=== PATIENT | female | born 1985 | race Caucasian/White ===

== ENCOUNTER 2018-07-10 19:17 | Emergency (ER) | payer SELFPAY ==
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
[2018-07-10 20:26] LABS: Urine Blood 1+ (NEG); Urine Glucose NEGATIVE (NEG); Urine Protein NEGATIVE (NEG); Urine Specific Gravity >1.030 (1.005-1.030); Urine pH 6.5 (5.0-7.0)
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
== END 2018-07-10 21:26 | disposition home or self-care (01) ==
LOC: ER 19:17
DX: S13.4XXA Sprain of ligaments of cervical spine, initial encounter (principal); S33.5XXA Sprain of ligaments of lumbar spine, initial encounter; S20.229A Contusion of unspecified back wall of thorax, initial encounter; V49.40XA Driver injured in collision with unspecified motor vehicles in traffic accident, initial encounter; F17.210 Nicotine dependence, cigarettes, uncomplicated
CPT/HCPCS: 71046; 72100; 72125; 81003; 81025; 99284

== ENCOUNTER 2018-12-21 16:34 | Emergency (ER) | payer SELFPAY ==
--- NOTE | 2018-12-21 18:36 | ER ---
Nurse's Notes [facility] Name: Argentina Torres Age: 33 yrs Sex: Female : 1985 Arrival Date: 12/21/2018 Time: 16:36 Bed 30 Private MD: Diagnosis: Streptococcal pharyngitis Presentation: 12/21 17:02 Presenting complaint: Patient states: Sore throat, diarrhea, fatigue, body aches, hb headache, chills, and nausea x 3 days. Transition of care: patient was not received from another setting of care. Onset of symptoms was December 18, 2018. Risk Assessment: Do you want to hurt yourself or someone else? Patient reports no desire to harm self or others. Care prior to arrival: None. 17:02 Method Of Arrival: Ambulatory hb 17:02 Acuity: FRANNIE 3 hb 18:44 Initial Sepsis Screen: Does the patient meet any 2 criteria? No. Patient's initial rv sepsis screen is negative. Does the patient have a suspected source of infection? No. Patient's initial sepsis screen is negative. Historical: - Allergies: 17:03 No Known Allergies; hb - Home Meds: 18:45 Tylenol #3 Oral [Active]; rv - PMHx: 18:45 None; rv - PSHx: 17:03 Tubal ligation; hb - Immunization history:: Adult Immunizations up to date. - Social history:: Smoking status: Patient uses tobacco products, smokes one-half pack cigarettes per day. - Ebola Screening: : No symptoms or risks identified at this time. Screenin:43 Abuse screen: Denies threats or abuse. Denies injuries from another. Nutritional rv screening: No deficits noted. Tuberculosis screening: No symptoms or risk factors identified. Fall Risk None identified. Assessment: 17:12 General: Appears in no apparent distress. comfortable, Behavior is calm, cooperative. rv Pain: Complains of pain in GENERALIZED. Neuro: Level of Consciousness is awake, alert, obeys commands, Oriented to person, place, time, situation. Cardiovascular: Capillary refill < 3 seconds. Respiratory: Airway is patent Respiratory effort is even, Breath sounds are clear bilaterally. GI: Reports diarrhea. : No signs and/or symptoms were reported regarding the genitourinary system. EENT: Throat. Derm: Skin is intact. Musculoskeletal: No signs and/or symptoms reported regarding the musculoskeletal system. Vital Signs: 17:03 BP 127 / 71; Pulse 98; Resp 16; Temp 99.1; Pulse Ox 98% on R/A; Pain 8/10; hb ED Course: 16:36 Patient arrived in ED. ds1 17:03 Triage completed. hb 17:03 Arm band placed on. hb 17:06 Smitha Ventura FNP-C is [facility]. kb 17:06 Jin Vinson MD is Attending Physician. kb 17:25 Flu and/or RSV swab sent to lab. Strep swab sent to lab. lt1 17:26 Flu Sent. lt1 17:26 Strep Sent. lt1 18:43 Patient has correct armband on for positive identification. Bed in low position. Call rv light in reach. Side rails up X 1. Pulse ox on. NIBP on. 18:44 No provider procedures requiring assistance completed. Patient did not have IV access rv during this emergency room visit. Administered Medications: 18:42 Drug: Augmentin 875 mg Route: PO; rv 18:42 Follow up: Response: Medication administered at discharge. rv Outcome: 18:35 Discharge ordered by MD. kb 18:45 Discharged to home ambulatory. rv 18:45 Condition: good 18:45 Discharge instructions given to patient, Instructed on discharge instructions, follow up and referral plans. medication usage, Demonstrated understanding of instructions, follow-up care, medications, Prescriptions given X 1. 18:45 Patient left the ED. rv Signatures: Smitha Ventura FNP-C FNP-Ckb Sanford, Demi ds1 Leola Jimenez, RN ANNETTE Camden Bueno RN RN Emily Blas lt1
--- NOTE | 2018-12-21 18:36 | EDPHYS ---
Physician Documentation [facility] Name: Argentina Torres Age: 33 yrs Sex: Female : 1985 Arrival Date: 12/21/2018 Time: 16:36 Bed 30 Private MD: ED Physician Jin Vinson HPI: 12/21 17:16 This 33 yrs old Female presents to ER via Ambulatory with complaints of Sore kb Throat, Diarrhea. 17:16 The patient presents with sore throat. The patient describes throat pain as constant. kb Onset: The symptoms/episode began/occurred 2 day(s) ago. Severity of symptoms: At their worst the symptoms were mild, moderate, in the emergency department the symptoms are unchanged. Modifying factors: The symptoms are alleviated by nothing, the symptoms are aggravated by swallowing, Patient's oral intake status: good. Associated signs and symptoms: Pertinent positives: flu-like symptoms, myalgias, headache, Sore throat. The patient has not experienced similar symptoms in the past. The patient has not recently seen a physician. Pt reports sore throat, headache, chills and body aches for 2 days. . Historical: - Allergies: 17:03 No Known Allergies; hb - Home Meds: 18:45 Tylenol #3 Oral [Active]; rv - PMHx: 18:45 None; rv - PSHx: 17:03 Tubal ligation; hb - Immunization history:: Adult Immunizations up to date. - Social history:: Smoking status: Patient uses tobacco products, smokes one-half pack cigarettes per day. - Ebola Screening: : No symptoms or risks identified at this time. ROS: 17:15 Neck: Negative for injury, pain, and swelling, Cardiovascular: Negative for chest pain, kb palpitations, and edema, Respiratory: Negative for shortness of breath, cough, wheezing, and pleuritic chest pain, Abdomen/GI: Negative for abdominal pain, nausea, vomiting, diarrhea, and constipation, MS/Extremity: Negative for injury and deformity, Skin: Negative for injury, rash, and discoloration, Neuro: Negative for headache, weakness, numbness, tingling, and seizure. 17:15 Constitutional: Positive for body aches, chills, fever, malaise, Negative for fatigue, poor PO intake, weight loss. 17:15 ENT: Positive for sore throat. Exam: 17:14 Constitutional: This is a well developed, well nourished patient who is awake, alert, kb and in no acute distress. Head/Face: Normocephalic, atraumatic. Neck: Trachea midline, no thyromegaly or masses palpated, and no cervical lymphadenopathy. Supple, full range of motion without nuchal rigidity, or vertebral point tenderness. No Meningismus. Chest/axilla: Normal chest wall appearance and motion. Nontender with no deformity. No lesions are appreciated. Cardiovascular: Regular rate and rhythm with a normal S1 and S2. No gallops, murmurs, or rubs. Normal PMI, no JVD. No pulse deficits. Respiratory: Lungs have equal breath sounds bilaterally, clear to auscultation and percussion. No rales, rhonchi or wheezes noted. No increased work of breathing, no retractions or nasal flaring. Abdomen/GI: Soft, non-tender, with normal bowel sounds. No distension or tympany. No guarding or rebound. No evidence of tenderness throughout. Skin: Warm, dry with normal turgor. Normal color with no rashes, no lesions, and no evidence of cellulitis. MS/ Extremity: Pulses equal, no cyanosis. Neurovascular intact. Full, normal range of motion. Neuro: Awake and alert, GCS 15, oriented to person, place, time, and situation. Cranial nerves II-XII grossly intact. Motor strength 5/5 in all extremities. Sensory grossly intact. Cerebellar exam normal. Normal gait. 17:14 ENT: External ear(s): are unremarkable, Ear canal(s): are normal, TM's: are normal, Nose: is normal, Mouth: is normal, Posterior pharynx: Airway: normal, no evidence of obstruction, Tonsils: bilaterally enlarged, with erythema, with exudate, Uvula: normal, midline, swelling, that is moderate, erythema, that is moderate, exudate, that is moderate. Vital Signs: 17:03 BP 127 / 71; Pulse 98; Resp 16; Temp 99.1; Pulse Ox 98% on R/A; Pain 8/10; hb MDM: 17:06 Patient medically screened. kb 17:14 Data reviewed: vital signs, nurses notes. Data interpreted: Pulse oximetry: on room air kb is 98 %. Interpretation: normal. 18:33 Counseling: I had a detailed discussion with the patient and/or guardian regarding: the kb historical points, exam findings, and any diagnostic results supporting the discharge/admit diagnosis, lab results, the need for outpatient follow up, a family practitioner, to return to the emergency department if symptoms worsen or persist or if there are any questions or concerns that arise at home. 12/21 17:14 Order name: Strep kb 12/21 17:14 Order name: Flu kb 12/21 17:15 Order name: Group A Streptococcus Rapid Sc; Complete Time: 18:34 EDMS 12/21 17:15 Order name: Influenza Screen (A ; Complete Time: 18:34 EDMS Administered Medications: 18:42 Drug: Augmentin 875 mg Route: PO; rv 18:42 Follow up: Response: Medication administered at discharge. rv Disposition: 12/22 07:18 Co-signature as Attending Physician, Jin Vinson MD I agree with the assessment and kdr plan of care. Chart complete. Disposition: 12/21/18 18:35 Discharged to Home. Impression: Streptococcal pharyngitis. - Condition is Stable. - Discharge Instructions: Strep Throat, Scac-[id number]. - Prescriptions for Augmentin 875- 125 mg Oral Tablet - take 1 tablet by ORAL route every 12 hours for 10 days; 20 tablet. - Medication Reconciliation Form, Thank You Letter, Antibiotic Education, Prescription Opioid Use, Work release form form. - Follow up: Emergency Department; When: As needed; Reason: Worsening of condition. Follow up: Private Physician; When: 2 - 3 days; Reason: Recheck today's complaints, Continuance of care, Re-evaluation by your physician. Signatures: Dispatcher [employer] EDSmitha Ely, MANAGER OF REVENUE-C MANAGER OF REVENUE-Jin Erickson MD MD [facility] Leola Jimenez RN RN hb Vicente, Ronaldo, RN RN rv Corrections: (The following items were deleted from the chart) 12/21 18:45 18:35 12/21/2018 18:35 Discharged to Home. Impression: Streptococcal pharyngitis. rv Condition is Stable. Forms are Medication Reconciliation Form, Thank You Letter, Antibiotic Education, Prescription Opioid Use. Follow up: Emergency Department; When: As needed; Reason: Worsening of condition. Follow up: Private Physician; When: 2 - 3 days; Reason: Recheck today's complaints, Continuance of care, Re-evaluation by your physician. kb
[2018-12-21] MEDS ORDERED: AMOX/K CLAV 875 MG TAB ONE (18:50)
== END 2018-12-21 18:45 | disposition home or self-care (01) ==
LOC: ER 16:34
DX: J02.0 Streptococcal pharyngitis (principal); F17.210 Nicotine dependence, cigarettes, uncomplicated
CPT/HCPCS: 87081; 87804; 99284

== ENCOUNTER 2019-07-10 08:20 | Emergency (ER) | payer SELFPAY ==
[2019-07-10] MEDS ORDERED: IBUPROFEN 400 MG TAB ONE (09:28)
--- NOTE | 2019-07-10 10:13 | EDPHYS ---
Physician Documentation [facility] Name: Argentina Torres Age: 34 yrs Sex: Female : 1985 Arrival Date: 07/10/2019 Time: 08:21 Bed 14 Private MD: ED Physician Kris Preston HPI: 07/10 08:47 This 34 yrs old Female presents to ER via Ambulatory with complaints of jmm Headache, Pain All Over, Sore Throat. 08:47 The patient presents with sore throat. Onset: The symptoms/episode began/occurred jmm gradually, 2 day(s) ago. Modifying factors: The symptoms are alleviated by nothing, the symptoms are aggravated by nothing. Associated signs and symptoms: Pertinent positives: fever, headache, Sore throat. The patient has experienced a previous episode. This is a 34 year old female with no chronic medical conditions that presents to the ED with complaints of sore throat, headache, body aches that began this past Tuesday. Patient has had similar symptoms before with strep infections. . 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 - Social history:: Smoking status: Patient uses tobacco products, smokes one-half pack cigarettes per day. - Ebola Screening: : No symptoms or risks identified at this time. ROS: 08:47 Respiratory: Negative for shortness of breath, cough, wheezing, and pleuritic chest jmm pain, Abdomen/GI: Negative for abdominal pain, nausea, vomiting, diarrhea, and constipation, Back: Negative for injury and pain. 08:47 Constitutional: Positive for body aches, fever. 08:47 Cardiovascular: Positive for chest pain, with cough. 08:47 Neuro: Positive for headache. 08:47 All other systems are negative. Exam: 08:47 Constitutional: This is a well developed, well nourished patient who is awake, alert, jmm and in no acute distress. Head/Face: atraumatic. Eyes: EOMI, no conjunctival erythema appreciated 08:47 ENT: Posterior pharynx: erythema, that is moderate. 08:47 Neck: ROM/movement: is normal. 08:47 Cardiovascular: Rate: tachycardic, Rhythm: regular. 08:47 Respiratory: the patient does not display signs of respiratory distress, Respirations: normal, Breath sounds: are clear throughout. 08:47 Abdomen/GI: Inspection: abdomen appears normal, Bowel sounds: normal, Palpation: abdomen is soft and non-tender. 08:47 Skin: Appearance: Color: normal in color. 08:47 Neuro: Orientation: is normal, Mentation: is normal, Memory: is normal. 08:47 Psych: Behavior/mood is pleasant, cooperative. Vital Signs: 08:37 BP 127 / 79; Pulse 104; Resp 19 S; Temp 100.2(O); Pulse Ox 99% on R/A; Pain 10/10; jl7 10:31 BP 112 / 78; Pulse 94; Resp 16 S; Temp 99.2(O); Pulse Ox 100% on R/A; jl7 MDM: 09:02 Patient medically screened. [facility] 10:12 Data reviewed: vital signs, nurses notes. Counseling: I had a detailed discussion with kobi the patient and/or guardian regarding: the historical points, exam findings, and any diagnostic results supporting the discharge/admit diagnosis, lab results, the need for outpatient follow up, to return to the emergency department if symptoms worsen or persist or if there are any questions or concerns that arise at home. ED course: Patient is alert and non toxic in appearance in the ED. PE findings consistent with Strep Pharyngitis. Patient advised to follow up with pcp and otherwise given strict return precautions. Patient understood and agrees with the plan of care. . 07/10 08:46 Order name: Strep; Complete Time: 09:12 [facility] 07/10 08:46 Order name: Flu; Complete Time: 09:16 [facility] 07/10 10:31 Order name: EKG Electrocardiogram EDMS Administered Medications: 09:30 Drug: Ibuprofen 800 mg Route: PO; 7 10:30 Follow up: Response: No adverse reaction jl7 Disposition: 13:29 Co-signature as Attending Physician, Kris Preston MD I agree with the assessment and [facility] plan of care. Disposition: 07/10/19 10:12 Discharged to Home. Impression: Streptococcal pharyngitis. - Condition is Stable. - Discharge Instructions: Strep Throat. - Prescriptions for Amoxicillin 875 mg Oral Tablet - take 1 tablet by ORAL route every 12 hours for 10 days; 20 tablet. - Medication Reconciliation Form, Thank You Letter, Antibiotic Education, Prescription Opioid Use, Work release form form. - Follow up: Private Physician; When: 2 - 3 days; Reason: Recheck today's complaints, Continuance of care, Re-evaluation by your physician. Signatures: Dispatcher [employer] EDKris Bean MD MD cha Mickail, Joel, PA PA jmm Leal, Jahala, RN RN jl7 Corrections: (The following items were deleted from the chart) 10:32 10:12 07/10/2019 10:12 Discharged to Home. Impression: Streptococcal pharyngitis. jl7 Condition is Stable. Forms are Medication Reconciliation Form, Thank You Letter, Antibiotic Education, Prescription Opioid Use. Follow up: Private Physician; When: 2 - 3 days; Reason: Recheck today's complaints, Continuance of care, Re-evaluation by your physician. kobi
--- NOTE | 2019-07-10 10:13 | ER ---
Nurse's Notes [facility] Name: Argentina Torres Age: 34 yrs Sex: Female : 1985 Arrival Date: 07/10/2019 Time: 08:21 Bed 14 Private MD: Diagnosis: Streptococcal pharyngitis Presentation: 07/10 08:33 Presenting complaint: Patient states: SEPULVEDA, fatigue and sore throat x 2 days. Substernal jl7 chest soreness and left rib soreness with palpation and movement. Transition of care: patient was not received from another setting of care. Onset of symptoms was July 08, 2019. Risk Assessment: Do you want to hurt yourself or someone else? Patient reports no desire to harm self or others. Initial Sepsis Screen: Does the patient meet any 2 criteria? HR > 90 bpm. No. Patient's initial sepsis screen is negative. Does the patient have a suspected source of infection? No. Patient's initial sepsis screen is negative. Care prior to arrival: None. 08:33 Method Of Arrival: Ambulatory [facility] 08:33 Acuity: FRANNIE 4 jl7 Triage Assessment: 08:37 Headache History: The patient has had previous headaches and this one is similar to jl7 previous episodes. General: Appears in no apparent distress. uncomfortable, ill, Behavior is calm, cooperative, appropriate for age. Pain: Complains of pain in sore throat Pain. Pain: Complains of pain in SEPULVEDA Pain does not radiate. Pain currently is 10 out of 10 on a pain scale. Quality of pain is described as Pain began 2-3 days ago. Is continuous, Also complains of no other associated symptoms. EENT: Throat is reddened has patchy exudate has enlarged tonsils bilaterally. Neuro: Level of Consciousness is awake, alert, obeys commands, Oriented to person, place, time, situation. Cardiovascular: Heart tones S1 S2 present Patient's skin is warm and dry. Respiratory: Airway is patent Respiratory effort is even, unlabored, Respiratory pattern is regular, symmetrical, Breath sounds are clear bilaterally. GI: Patient currently denies diarrhea, nausea, vomiting. : Denies burning with urination. Derm: Skin is pink, warm \T\ dry. Musculoskeletal: No signs and/or symptoms reported regarding the musculoskeletal system. 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 - Social history:: Smoking status: Patient uses tobacco products, smokes one-half pack cigarettes per day. - Ebola Screening: : No symptoms or risks identified at this time. Screenin:40 Abuse screen: Denies threats or abuse. Denies injuries from another. Nutritional jl7 screening: No deficits noted. Tuberculosis screening: No symptoms or risk factors identified. Fall Risk None identified. Assessment: 08:40 General: see triage assessment. jl7 09:40 Reassessment: Patient appears in no apparent distress at this time. Patient and/or jl7 family updated on plan of care and expected duration. Pain level reassessed. Patient is alert, oriented x 3, equal unlabored respirations, skin warm/dry/pink. Vital Signs: 08:37 BP 127 / 79; Pulse 104; Resp 19 S; Temp 100.2(O); Pulse Ox 99% on R/A; Pain 10/10; jl7 10:31 BP 112 / 78; Pulse 94; Resp 16 S; Temp 99.2(O); Pulse Ox 100% on R/A; jl7 ED Course: 08:21 Patient arrived in ED. as 08:28 Dheeraj Cavazos PA is PHCP. [facility] 08:28 Kris Preston MD is Attending Physician. [facility] 08:33 Chapin Sarah RN is Primary Nurse. jl7 08:35 Triage completed. jl7 08:37 Arm band placed on right wrist. jl7 08:38 EKG done, by aviation survival technician. reviewed by Kris Preston MD. at1 08:40 Patient has correct armband on for positive identification. Placed in gown. Bed in low jl7 position. Call light in reach. Side rails up X 1. net programmer on. Pulse ox on. NIBP on. 08:54 Flu Sent. kj1 08:55 Strep Sent. kj1 10:31 No provider procedures requiring assistance completed. Patient did not have IV access jl7 during this emergency room visit. Administered Medications: 09:30 Drug: Ibuprofen 800 mg Route: PO; jl7 10:30 Follow up: Response: No adverse reaction Outcome: 10:12 Discharge ordered by . kobi 10:31 Discharged to home ambulatory. 10:31 Condition: stable 10:31 Discharge instructions given to patient, Instructed on discharge instructions, follow up and referral plans. medication usage, Demonstrated understanding of instructions, follow-up care, medications, Prescriptions given X 1. 10:32 Patient left the ED. Signatures: Dheeraj Cavazos PA PA jmm Martinez, Amelia as Gonzales, Amanda, furniture arranger EKG Tat1 Chapin Sarah RN RN jl7 Marietta Ventura kj1 Corrections: (The following items were deleted from the chart) 08:44 08:33 Presenting complaint: Patient states: SEPULVEDA, fatigue and sore throat x 2 days 08:44 08:33 Acuity: FRANNIE 3
[2019-07-10 10:44] VITALS: BP 112/78; TEMP 99.2; O2SAT 100
--- NOTE | 2019-07-10 12:12 | EKG ---
Test Date: 2019-07-10 Test Time: 08:29:08 Demurrage Clerk: WILLIE MEASUREMENT RESULTS: Intervals: Rate: 105 CA: 128 QRSD: 90 QT: 336 QTc: 444 [place]: P: 51 CA: 128 QRS: 75 T: 9 INTERPRETIVE STATEMENTS: Sinus tachycardia Nonspecific ST and T wave abnormality Abnormal ECG No previous ECG available for comparison Electronically Signed On 07-10-19 12:10:12 CDT by Freedom Apodaca
== END 2019-07-10 10:32 | disposition home or self-care (01) ==
LOC: ER 08:20
DX: J02.0 Streptococcal pharyngitis (principal); F17.210 Nicotine dependence, cigarettes, uncomplicated
CPT/HCPCS: 87081; 87804; 93005; 99284

== ENCOUNTER 2019-12-17 17:54 | Emergency (ER) | payer SELFPAY ==
[2019-12-17] MEDS ORDERED: HYDROCODONE/CHLORPHEN 5 ML/OSYR ONE (19:59)
--- NOTE | 2019-12-17 22:06 | ER ---
Nurse's Notes [facility] Name: Argentina Torres Age: 34 yrs Sex: Female : 1985 Arrival Date: 12/17/2019 Time: 17:58 Bed 7 Private MD: Diagnosis: Acute upper respiratory infection, unspecified Presentation: 12/16 18:21 Chief complaint: Patient states: SOB since this morning. Congestion and cough, headache ca1 this morning. Denies fever. Coronavirus screen: Patient reports a subjective fever or greater than 100.4F, or cough, or shortness of breath, or difficulty breathing. Patient denies travel on a cruise ship or to a country the [facility] currently lists as an affected area. Patient denies contact with known and/or suspected case of COVID-19. Ebola Screen: Patient negative for fever greater than or equal to 101.5 degrees Fahrenheit, and additional compatible Ebola Virus Disease symptoms Patient denies exposure to infectious person. Patient denies travel to an Ebola-affected area in the 21 days before illness onset. No symptoms or risks identified at this time. Initial Sepsis Screen: Does the patient meet any 2 criteria? No. Patient's initial sepsis screen is negative. Does the patient have a suspected source of infection? No. Patient's initial sepsis screen is negative. Risk Assessment: Do you want to hurt yourself or someone else? Patient reports no desire to harm self or others. Onset of symptoms was December 17, 2019. 18:21 Method Of Arrival: Ambulatory ca1 18:21 Acuity: FRANNIE 4 ca1 Triage Assessment: 19:51 Headache History: Denies prior headaches. Pain: Pain at worst was 10 out of 10 on a jd3 pain scale. Pain began 1 day ago. Also complains of no other associated symptoms. 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 - Social history:: Smoking status: Patient reports the use of cigarette tobacco products, smokes one-half pack cigarettes per day. Screenin:51 Abuse screen: Denies threats or abuse. Nutritional screening: No deficits noted. jd3 Tuberculosis screening: No symptoms or risk factors identified. Fall Risk Ambulatory Aid- None/Bed Rest/Nurse Assist (0 pts). Gait- Normal/Bed Rest/Wheelchair (0 pts) Mental Status- Oriented to own ability (0 pts). Total Lawler Fall Scale indicates No Risk (0-24 pts). Assessment: 19:49 General: Appears in no apparent distress. uncomfortable, Behavior is calm, cooperative, jd3 appropriate for age, nurse and pt with masks on.. Pain: Denies pain. Neuro: Level of Consciousness is awake, alert, obeys commands, Oriented to person, place, time, situation. Cardiovascular: Denies chest pain, Capillary refill < 3 seconds Patient's skin is warm and dry. Respiratory: Reports shortness of breath at rest cough that is non-productive, persistent Airway is patent Respiratory effort is even, unlabored, Respiratory pattern is regular, symmetrical, Breath sounds are clear bilaterally. GI: No signs and/or symptoms were reported involving the gastrointestinal system. Patient currently denies constipation, diarrhea, nausea, vomiting. : No signs and/or symptoms were reported regarding the genitourinary system. EENT: Throat is clear. Derm: Skin is intact, Skin is dry, Skin is normal, Skin temperature is warm. Musculoskeletal: Circulation, motion, and sensation intact. Range of motion: intact in all extremities. 20:40 Reassessment: Patient appears in no apparent distress at this time. Patient and/or jd3 family updated on plan of care and expected duration. Pain level reassessed. Patient is alert, oriented x 3, equal unlabored respirations, skin warm/dry/pink. awaiting results. Patient states feeling better. 21:38 Reassessment: Patient appears in no apparent distress at this time. Patient and/or jd3 family updated on plan of care and expected duration. Pain level reassessed. Patient is alert, oriented x 3, equal unlabored respirations, skin warm/dry/pink. awaiting disposition. 22:25 Reassessment: Patient appears in no apparent distress at this time. Patient and/or jd3 family updated on plan of care and expected duration. Pain level reassessed. Patient is alert, oriented x 3, equal unlabored respirations, skin warm/dry/pink. pt reported understanding of discharge instructions. even and steady gait upon discharge. Vital Signs: 18:21 BP 102 / 66; Pulse 85; Resp 17 S; Temp 98(O); Pulse Ox 98% on R/A; Weight 79.83 kg (R); ca1 Height 5 ft. 5 in. (165.10 cm) (R); Pain 7/10; 20:40 BP 102 / 57; Pulse 80; Resp 16 S; Pulse Ox 99% on R/A; jd3 21:38 BP 109 / 68; Pulse 79; Resp 17 S; Pulse Ox 99% on R/A; jd3 18:21 Body Mass Index 29.29 (79.83 kg, 165.10 cm) ca1 ED Course: 17:58 Patient arrived in ED. mr 18:22 Triage completed. ca1 18:23 Arm band placed on right wrist. ca1 19:13 Ramon Belcher NP is PHCP. pm1 19:13 Lisa Powell MD is Attending Physician. pm1 19:16 María Loyola, ANNETTE is Primary Nurse. 19:51 Patient has correct armband on for positive identification. Bed in low position. Call jd3 light in reach. Side rails up X 1. Pulse ox on. NIBP on. 20:01 Flu Sent. jd3 20:01 Strep Sent. jd3 21:17 Chest Pa And Lat (2 Views) XRAY In Process Unspecified. EDMS 22:24 No provider procedures requiring assistance completed. Patient did not have IV access jd3 during this emergency room visit. Administered Medications: 20:01 Drug: Tussionex Pennkinetic ER 5 ml Route: PO; jd3 21:00 Follow up: Response: No adverse reaction jd3 Outcome: 22:05 Discharge ordered by . pm1 22:25 Discharged to home ambulatory, with family. jd3 22:25 Condition: stable 22:25 Discharge instructions given to patient, Instructed on discharge instructions, follow up and referral plans. medication usage, Demonstrated understanding of instructions, follow-up care, medications, Prescriptions given X 1. 22:26 Patient left the ED. jd3 Signatures: Dispatcher [employer] EDMS María Loyola, ANNETTE BRYANT Clara Serrano mr Ramon Belcher NP AUDIOPROSTHOLOGIST pm1 Gualberto Auguste RN RN jd3 Acob, Britany, RN RN ca1 Corrections: (The following items were deleted from the chart) 20:02 19:49 General: Appears in no apparent distress. uncomfortable, Behavior is calm, jd3 cooperative, appropriate for age, jd3
--- NOTE | 2019-12-17 22:07 | EDPHYS ---
Physician Documentation [facility] Name: Argentina Torres Age: 34 yrs Sex: Female : 1985 Arrival Date: 12/17/2019 Time: 17:58 Bed 7 Private MD: ED Physician Lisa Powell HPI: 12/16 19:56 This 34 yrs old Female presents to ER via Ambulatory with complaints of pm1 Headache, Shortness Of Breath, Congestion, Dizziness. 19:56 The patient or guardian reports cough, with no sputum. Onset: The symptoms/episode pm1 began/occurred this morning. Severity of symptoms: in the emergency department the symptoms are actually worse. Modifying factors: The symptoms are alleviated by nothing, the symptoms are aggravated by nothing. Associated signs and symptoms: Pertinent positives: Headache, shortness of breath, congestion, Pertinent negatives: chest pain, fever, nausea, vomiting. The patient has not recently seen a physician. No sick contacts. No exposure to person with positive COVID testing. 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 - Social history:: Smoking status: Patient reports the use of cigarette tobacco products, smokes one-half pack cigarettes per day. ROS: 19:56 Constitutional: Negative for fever, chills, and weight loss, Eyes: Negative for injury, pm1 pain, redness, and discharge, ENT: Negative for injury, pain, and discharge, Neck: Negative for injury, pain, and swelling, Cardiovascular: Negative for chest pain, palpitations, and edema. 19:56 Abdomen/GI: Negative for abdominal pain, nausea, vomiting, diarrhea, and constipation, Back: Negative for injury and pain, MS/Extremity: Negative for injury and deformity, Skin: Negative for injury, rash, and discoloration. 19:56 Respiratory: Positive for cough, shortness of breath, Negative for sputum production, wheezing. 19:56 Neuro: Positive for headache, Negative for numbness, tingling, weakness. Exam: 19:56 Constitutional: This is a well developed, well nourished patient who is awake, alert, pm1 and in no acute distress. Head/Face: Normocephalic, atraumatic. Eyes: Pupils equal round and reactive to light, extra-ocular motions intact. Lids and lashes normal. Conjunctiva and sclera are non-icteric and not injected. Cornea within normal limits. Periorbital areas with no swelling, redness, or edema. ENT: Nares patent. No nasal discharge, no septal abnormalities noted. Tympanic membranes are normal and external auditory canals are clear. Oropharynx with no redness, swelling, or masses, exudates, or evidence of obstruction, uvula midline. Mucous membranes moist. Neck: Trachea midline, no thyromegaly or masses palpated, and no cervical lymphadenopathy. Supple, full range of motion without nuchal rigidity, or vertebral point tenderness. No Meningismus. Chest/axilla: Normal chest wall appearance and motion. Nontender with no deformity. No lesions are appreciated. Cardiovascular: Regular rate and rhythm with a normal S1 and S2. No gallops, murmurs, or rubs. No pulse deficits. Respiratory: Lungs have equal breath sounds bilaterally, clear to auscultation and percussion. No rales, rhonchi or wheezes noted. No increased work of breathing, no retractions or nasal flaring. Abdomen/GI: Soft, non-tender, with normal bowel sounds. No distension or tympany. No guarding or rebound. No evidence of tenderness throughout. Back: No spinal tenderness. No costovertebral tenderness. Full range of motion. Skin: Warm, dry with normal turgor. Normal color with no rashes, no lesions, and no evidence of cellulitis. MS/ Extremity: Pulses equal, no cyanosis. Neurovascular intact. Full, normal range of motion. 19:56 Neuro: Exam negative for acute changes, Orientation: is normal, Motor: is normal, moves all fours. Vital Signs: 18:21 BP 102 / 66; Pulse 85; Resp 17 S; Temp 98(O); Pulse Ox 98% on R/A; Weight 79.83 kg (R); ca1 Height 5 ft. 5 in. (165.10 cm) (R); Pain 7/10; 20:40 BP 102 / 57; Pulse 80; Resp 16 S; Pulse Ox 99% on R/A; jd3 21:38 BP 109 / 68; Pulse 79; Resp 17 S; Pulse Ox 99% on R/A; jd3 18:21 Body Mass Index 29.29 (79.83 kg, 165.10 cm) ca1 MDM: 19:41 Patient medically screened. pm1 20:59 Data reviewed: vital signs. Data interpreted: Pulse oximetry: on room air is 99 %. pm1 Interpretation: normal. 22:05 Counseling: I had a detailed discussion with the patient and/or guardian regarding: the pm1 historical points, exam findings, and any diagnostic results supporting the discharge/admit diagnosis, lab results, radiology results, the need for outpatient follow up, to return to the emergency department if symptoms worsen or persist or if there are any questions or concerns that arise at home. 12/16 19:49 Order name: Flu pm1 12/16 19:49 Order name: Strep pm1 12/16 19:49 Order name: Chest Pa And Lat (2 Views) XRAY pm1 12/16 20:35 Order name: Influenza Screen (A ; Complete Time: 20:41 EDMS 12/16 20:35 Order name: Group A Streptococcus Rapid Sc; Complete Time: 20:41 EDMS 12/16 21:37 Order name: Throat Culture EDMS Administered Medications: 20:01 Drug: Tussionex Pennkinetic ER 5 ml Route: PO; jd3 21:00 Follow up: Response: No adverse reaction jd3 Disposition: 12/17 18:46 Co-signature as Attending Physician, Lisa Powell MD. ma2 Disposition: 12/17/19 22:05 Discharged to Home. Impression: Acute upper respiratory infection, unspecified. - Condition is Stable. - Discharge Instructions: Antibiotic Resistance, Upper Respiratory Infection, Adult. - Prescriptions for Guaifenesin AC 10- 100 mg/5 mL Oral Liquid - take 10 milliliter by ORAL route every 4 hours As needed; 240 milliliter. - Medication Reconciliation Form, Thank You Letter, Antibiotic Education, Prescription Opioid Use, Work release form form. - Follow up: Emergency Department; When: As needed; Reason: Worsening of condition. Follow up: Private Physician; When: 2 - 3 days; Reason: Recheck today's complaints, Continuance of care, Re-evaluation by your physician. - Problem is new. - Symptoms have improved. Signatures: Dispatcher [employer] EDMS Ramon Belcher NP CANVAS CUTTER MACHINE pm1 Gualberto Auguste RN RN jd3 Lisa Powell MD MD ma2 Britany Farley RN RN ca1 Corrections: (The following items were deleted from the chart) 12/16 22:26 22:05 12/17/2019 22:05 Discharged to Home. Impression: Acute upper respiratory jd3 infection, unspecified. Condition is Stable. Forms are Medication Reconciliation Form, Thank You Letter, Antibiotic Education, Prescription Opioid Use. Follow up: Emergency Department; When: As needed; Reason: Worsening of condition. Follow up: Private Physician; When: 2 - 3 days; Reason: Recheck today's complaints, Continuance of care, Re-evaluation by your physician. Problem is new. Symptoms have improved. pm1
[2019-12-17 22:41] VITALS: TEMP 98
[2019-12-17 22:50] VITALS: O2SAT 99
[2019-12-17 22:52] VITALS: BP 109/68
--- NOTE | 2019-12-18 07:01 | RAD REPORT ---
EXAM DESCRIPTION: RAD - Chest Pa And Lat (2 Views) - 12/17/2019 8:09 pm CLINICAL HISTORY: COUGH COMPARISON: June 2018 TECHNIQUE: Frontal and lateral views of the chest were obtained. FINDINGS: The lungs are clear. Heart size is normal and central vasculature is within normal limit s. No pleural effusion or pneumothorax seen. No acute bony finding noted. No aortic abnormality. IMPRESSION: No acute cardiopulmonary process.
== END 2019-12-17 22:26 | disposition home or self-care (01) ==
LOC: ER 17:54
DX: J06.9 Acute upper respiratory infection, unspecified (principal); F17.210 Nicotine dependence, cigarettes, uncomplicated
CPT/HCPCS: 71046; 87070; 87081; 87804; 99284

== ENCOUNTER 2020-04-12 12:56 | Emergency (ER) | payer SELFPAY ==
--- NOTE | 2020-04-12 15:14 | EDPHYS ---
Physician Documentation [facility] Name: Argentina Torres Age: 35 yrs Sex: Female : 1985 Arrival Date: 04/12/2020 Time: 12:59 Bed 10 Private MD: ED Physician Kris Preston HPI: 04/12 15:05 This 35 yrs old Female presents to ER via Ambulatory with complaints of erin Decreased Appetite, Neck Swelling, Facial Swelling, Neck Pain, <24hrs Old. 15:05 The patient or guardian complains of pain. erin 15:05 The patient presents with redness, swelling. The problem is located in the upper left erin first molar and lower right second molar. Onset: The symptoms/episode began/occurred 3 day(s) ago. Duration: The symptoms are continuous, and are steadily getting worse. Modifying factors: The symptoms are alleviated by over the counter medications, prescription meds, motrin. Associated signs and symptoms: The patient has no apparent associated signs or symptoms. Severity of symptoms: At their worst the symptoms were mild, in the emergency department the symptoms are unchanged. The patient has not experienced similar symptoms in the past, The patient has experienced similar episodes in the past, several times. has dental appointment this week in [place]. Historical: - Allergies: 13:15 No Known Allergies; sv - PMHx: 13:15 None; sv - PSHx: 13:15 Tubal ligation; sv - Immunization history:: Adult Immunizations up to date. - Social history:: Smoking status: Patient reports the use of cigarette tobacco products, smokes one-half pack cigarettes per day. - Family history:: not pertinent. ROS: 15:05 Constitutional: Negative for fever, chills, and weight loss, Eyes: Negative for injury, erin pain, redness, and discharge, Neck: Negative for injury, pain, and swelling, Cardiovascular: Negative for chest pain, palpitations, and edema, Respiratory: Negative for shortness of breath, cough, wheezing, and pleuritic chest pain, Abdomen/GI: Negative for abdominal pain, nausea, vomiting, diarrhea, and constipation, Back: Negative for injury and pain, : Negative for injury, bleeding, discharge, and swelling, MS/Extremity: Negative for injury and deformity, Skin: Negative for injury, rash, and discoloration, Neuro: Negative for headache, weakness, numbness, tingling, and seizure, Psych: Negative for depression, anxiety, suicide ideation, homicidal ideation, and hallucinations, Allergy/Immunology: Negative for hives, rash, and allergies, Endocrine: Negative for neck swelling, polydipsia, polyuria, polyphagia, and marked weight changes, Hematologic/Lymphatic: Negative for swollen nodes, abnormal bleeding, and unusual bruising. 15:05 ENT: Positive for Teeth pain Exam: 15:05 Constitutional: This is a well developed, well nourished patient who is awake, alert, erin and in no acute distress. Head/Face: Normocephalic, atraumatic. Eyes: Pupils equal round and reactive to light, extra-ocular motions intact. Lids and lashes normal. Conjunctiva and sclera are non-icteric and not injected. Cornea within normal limits. Periorbital areas with no swelling, redness, or edema. Neck: Trachea midline, no thyromegaly or masses palpated, and no cervical lymphadenopathy. Supple, full range of motion without nuchal rigidity, or vertebral point tenderness. No Meningismus. Chest/axilla: Normal chest wall appearance and motion. Nontender with no deformity. No lesions are appreciated. Cardiovascular: Regular rate and rhythm with a normal S1 and S2. No gallops, murmurs, or rubs. Normal PMI, no JVD. No pulse deficits. Respiratory: Lungs have equal breath sounds bilaterally, clear to auscultation and percussion. No rales, rhonchi or wheezes noted. No increased work of breathing, no retractions or nasal flaring. Abdomen/GI: Soft, non-tender, with normal bowel sounds. No distension or tympany. No guarding or rebound. No evidence of tenderness throughout. Back: No spinal tenderness. No costovertebral tenderness. Full range of motion. Skin: Warm, dry with normal turgor. Normal color with no rashes, no lesions, and no evidence of cellulitis. MS/ Extremity: Pulses equal, no cyanosis. Neurovascular intact. Full, normal range of motion. Neuro: Awake and alert, GCS 15, oriented to person, place, time, and situation. Cranial nerves II-XII grossly intact. Motor strength 5/5 in all extremities. Sensory grossly intact. Cerebellar exam normal. Normal gait. 15:05 ENT: Dental exam: dental caries, gum swelling, pain, that is mild. Vital Signs: 13:15 BP 125 / 77; Pulse 60; Resp 20; Temp 99.2; Pulse Ox 100% on R/A; Weight 80.74 kg; sv Height 5 ft. 5 in. (165.10 cm); 13:15 Body Mass Index 29.62 (80.74 kg, 165.10 cm) sv MDM: 14:35 Patient medically screened. [facility] 15:10 Differential diagnosis: dental caries, gingivitis, dental abscess. Data reviewed: [facility] signs, nurses notes. Data interpreted: monitor and storage bin tender: rate is 60 beats/min, rhythm is regular, Pulse oximetry: on room air is 100 %. Counseling: I had a detailed discussion with the patient and/or guardian regarding: the historical points, exam findings, and any diagnostic results supporting the discharge/admit diagnosis, the need for outpatient follow up, for definitive care, a dentist. 15:12 ED course: no trismus. erin Administered Medications: 15:25 Drug: Motrin 600 mg Route: PO; sv 15:26 Follow up: Response: Medication administered at discharge. sv 15:26 Drug: Amoxicillin 500 mg Route: PO; sv 15:26 Follow up: Response: Medication administered at discharge. sv Disposition: 04/12/20 15:13 Discharged to Home. Impression: Dental caries. - Condition is Stable. - Discharge Instructions: Dental Pain, Dental Pain, [id number]. - Prescriptions for Amoxicillin 500 mg Oral Capsule - take 1 capsule by ORAL route every 8 hours for 10 days; 30 tablet. Ibuprofen 600 mg Oral Tablet - take 1 tablet by ORAL route every 6 hours As needed take with food; 20 tablet. Tylenol- Codeine #3 300-30 mg Oral Tablet - take 2 tablets by ORAL route every 6 hours As needed; 20 tablet. - Medication Reconciliation Form, Thank You Letter, Antibiotic Education, Prescription Opioid Use form. - Follow up: Private Physician; When: 2 - 3 days; Reason: Recheck today's complaints, Continuance of care, Re-evaluation by your physician. - Problem is new. - Symptoms have improved. Signatures: Patty Venegas RN RN Kris Preston MD MD [facility] Corrections: (The following items were deleted from the chart) 15:27 15:13 04/12/2020 15:13 Discharged to Home. Impression: Dental caries. Condition is sv Stable. Forms are Medication Reconciliation Form, Thank You Letter, Antibiotic Education, Prescription Opioid Use. Follow up: Private Physician; When: 2 - 3 days; Reason: Recheck today's complaints, Continuance of care, Re-evaluation by your physician. Problem is new. Symptoms have improved. erin
--- NOTE | 2020-04-12 15:14 | ER ---
Nurse's Notes [facility] Name: Argentina Torres Age: 35 yrs Sex: Female : 1985 Arrival Date: 04/12/2020 Time: 12:59 Bed 10 Private MD: Diagnosis: Dental caries Presentation: 04/12 13:14 Chief complaint: Patient states: "I think I have 2 bad teeth and I have no insurance to sv see the dentist." Reports pain in her throat and mouth area. Took a Hydrocodone 10/325 mg 3 hours ago. Coronavirus screen: Patient denies a cough. Patient denies shortness of breath or difficulty breathing. Patient denies measured and/or subjective temperature greater than 100.4F prior to today's visit. Patient denies travel on a cruise ship or to a country the [facility] currently lists as an affected area. Patient denies contact with known and/or suspected case of COVID-19. Ebola Screen: No symptoms or risks identified at this time. Risk Assessment: Do you want to hurt yourself or someone else? Patient reports no desire to harm self or others. Onset of symptoms was April 12, 2020. 13:14 Method Of Arrival: Ambulatory sv 13:14 Acuity: FRANNIE 4 sv 13:15 Initial Sepsis Screen: Does the patient meet any 2 criteria? No. Patient's initial sv sepsis screen is negative. Does the patient have a suspected source of infection? No. Patient's initial sepsis screen is negative. Triage Assessment: 13:19 General: Appears in no apparent distress. uncomfortable, well developed, Behavior is sv cooperative, appropriate for age, restless. Pain: Complains of pain in mouth and neck. Neuro: Level of Consciousness is awake, alert, obeys commands, Oriented to person, place, time, situation, Moves all extremities. Full function Gait is steady. Respiratory: Respiratory effort is even, unlabored. Historical: - Allergies: 13:15 No Known Allergies; sv - PMHx: 13:15 None; sv - PSHx: 13:15 Tubal ligation; sv - Immunization history:: Adult Immunizations up to date. - Social history:: Smoking status: Patient reports the use of cigarette tobacco products, smokes one-half pack cigarettes per day. - Family history:: not pertinent. Screenin:39 Abuse screen: Denies threats or abuse. Denies injuries from another. Nutritional ss screening: No deficits noted. Tuberculosis screening: Never had TB. Fall Risk None identified. Assessment: 15:27 Reassessment: Patient appears in no apparent distress at this time. No changes from sv previously documented assessment. Patient and/or family updated on plan of care and expected duration. Pain level reassessed. Patient is alert, oriented x 3, equal unlabored respirations, skin warm/dry/pink. See triage assessment. Vital Signs: 13:15 BP 125 / 77; Pulse 60; Resp 20; Temp 99.2; Pulse Ox 100% on R/A; Weight 80.74 kg; sv Height 5 ft. 5 in. (165.10 cm); 13:15 Body Mass Index 29.62 (80.74 kg, 165.10 cm) sv ED Course: 12:59 Patient arrived in ED. bp1 13:14 Arm band placed on. sv 13:15 Triage completed. sv 13:19 Patient placed in an exam room, Patient notified of wait time. sv 14:35 Kris Preston MD is Attending Physician. [facility] 14:39 Patient has correct armband on for positive identification. Bed in low position. Call ss light in reach. 15:20 Patty Venegas, ANNETTE is Primary Nurse. sv 15:26 No provider procedures requiring assistance completed. Patient did not have IV access sv during this emergency room visit. Administered Medications: 15:25 Drug: Motrin 600 mg Route: PO; sv 15:26 Follow up: Response: Medication administered at discharge. sv 15:26 Drug: Amoxicillin 500 mg Route: PO; sv 15:26 Follow up: Response: Medication administered at discharge. sv Outcome: 15:13 Discharge ordered by . erin 15:26 Discharged to home ambulatory. sv 15:26 Condition: stable 15:26 Discharge instructions given to patient, Instructed on discharge instructions, follow up and referral plans. no drinking with medication, no driving heavy equipment, medication usage, Demonstrated understanding of instructions, follow-up care, medications, Prescriptions given X 2. 15:27 Patient left the ED. sv Signatures: Patty Venegas RN RN Kris Preston MD MD cha Smirch, Shelby, RN RN Marisol Boo bp1 Corrections: (The following items were deleted from the chart) 13:19 13:14 Chief complaint: Patient states: "I think I have 2 bad teeth and I have no sv insurance to see the dentist." Reports pain in her throat and mouth area. sv
[2020-04-12] MEDS ORDERED: IBUPROFEN 200 MG TAB PO ONE (15:30)
[2020-04-12] MEDS ORDERED: IBUPROFEN 400 MG TAB ONE (15:30)
[2020-04-12] MEDS ORDERED: AMOXICILLIN TRIHYDR 250 MG CAP ONE (15:30)
[2020-04-12 15:32] VITALS: BP 125/77; TEMP 99.2; O2SAT 100
== END 2020-04-12 15:27 | disposition home or self-care (01) ==
LOC: ER 12:56
DX: K02.9 Dental caries, unspecified (principal); F17.210 Nicotine dependence, cigarettes, uncomplicated
CPT/HCPCS: 99283